=== PATIENT | male | born 1965 | race Caucasian/White ===

== ENCOUNTER 2018-01-31 15:45 | Outpatient (CLI) | payer BC | END 2018-01-31 15:46 | disposition home or self-care (01) | LOC: BICRAD 15:45 | PROVIDERS: ATTEND Internal Medicine Rheumatology | DX: M79.672 Pain in left foot (principal); M19.072 Primary osteoarthritis, left ankle and foot ==

== ENCOUNTER 2019-01-31 14:44 | Outpatient (CLI) | payer BC ==
--- NOTE | 2019-01-31 15:17 | RAD ---
LEFT FOOT 3 VIEWS: HISTORY: Injury 1 year ago with pain, stress fracture. FINDINGS: No evidence for acute fracture or dislocation. No plain film evidence for a stress-related fracture. There are some degenerative and osteoarthrosis changes. IMPRESSION: Degenerative and osteoarthrosis changes. No acute fracture or dislocation. If there remains clinical concern for stress fracture or stress related injury, a followup MRI study would be of benefit in further assessing this. POS: [facility]
== END 2019-01-31 14:45 | disposition home or self-care (01) ==
LOC: BICRAD 14:44
PROVIDERS: ATTEND Internal Medicine Rheumatology
DX: M84.375D Stress fracture, left foot, subsequent encounter for fracture with routine healing (principal); M19.072 Primary osteoarthritis, left ankle and foot

== ENCOUNTER 2019-07-10 10:06 | Outpatient (CLI) | payer BC ==
--- NOTE | 2019-07-10 11:45 | CT ---
CT Abdomen Pelvis W WO con: 07/10/2019 12:00 AM CLINICAL HISTORY: Gross hematuria. TECHNIQUE: Multiple contiguous axial images were obtained and a CT of the abdomen and pelvis without and with IV contrast. Postcontrast images were obtained in the nephrographic and excretory phases. Sagittal and coronal reformats were performed. COMPARISON: None. FINDINGS: Kidneys and Urinary Tract: Right kidney and ureter: No calculi. No hydronephrosis or hydroureter. No renal mass or other lesions . No urothelial lesions: no filling defect, dilation, stricture or wall thickening. Left kidney and ureter: No calculi. No hydronephrosis or hydroureter. 8.9 cm cyst. No solid mass. No urothelial lesions: no filling defect, dilation, stricture or wall thickening. Urinary bladder: Normal, no calculi, mass or other lesions. Remainder of Abdomen and Pelvis: Liver: Normal. Gallbladder and biliary system: Normal. No CT evident gallstones. No biliary ductal dilatation. Spleen: Normal. Pancreas: Normal. Adrenal glands: Normal. GI tract: Postsurgical changes in the stomach. Abdominal aorta and its major branches: Normal. No aneurysm. Peritoneum/retroperitoneum: Normal. No ascites. No adenopathy. Pelvic structures: Normal. No pelvic lymphadenopathy. Body wall and musculoskeletal: Degenerative changes and postsurgical changes in the spine. Visualized lower thorax: Normal. No pulmonary parenchymal mass or pleural effusion. IMPRESSION: Left renal cyst
== END 2019-07-10 10:07 | disposition home or self-care (01) ==
LOC: SCSCT 10:06
PROVIDERS: ATTEND Family Medicine
DX: R31.0 Gross hematuria (principal); N28.1 Cyst of kidney, acquired
CPT/HCPCS: 74178

== ENCOUNTER 2019-07-25 15:34 | Outpatient (CLI) | payer BC ==
[2019-07-25 15:54] VITALS: BMI 29.5
[2019-07-25 16:12] LABS: Hemoglobin 18.2 g/dL (14.0-18.0); Mean Corpuscular HGB CONC 34.1 g/dL (32.0-36.0); Mean Corpuscular Hemoglobin 33.8 pg (27.0-31.0); Mean Platelet Volume 7.9 fL (7.4-10.4); Platelet Count 172 thou/uL (130-400); RBC Distribution Width 12.7 % (11.5-14.5); Red Blood Cell (RBC) Count 5.39 mill/uL (4.70-6.10); White Blood Cell (WBC) Count 10.6 thou/uL (4.8-10.8)
[2019-07-25 16:15] LABS: Bacteria/HPF None Seen HPF (None Seen); Bilirubin Negative (Negative); Blood, Urine Negative (Negative); Clarity Turbid (Clear); Glucose, Urine (Dipstick) Normal (Negative); Leukocyte 500 Leu/uL (Negative); Nitrite Negative (Negative); Protein, Urine (Dipstick) Negative (Neg-Trace); Squamous Epithelial None Seen HPF (0-3); Urobilinogen Normal mg/dL (Less than 2); WBC/HPF Greater than 50 HPF (0-3)
[2019-07-25 16:25] LABS: RBC/HPF 0-3 HPF (0-3)
[2019-07-25 16:29] LABS: Anion Gap 13 mmol/L (10-20); BUN (Urea Nitrogen) 12 mg/dL (8.4-25.7); Calc. Creatinine Clearance 86 mL/min (70-130); Calcium 9.8 mg/dL (7.8-10.44); Carbon Dioxide 27 mmol/L (22-29); Chloride 100 mmol/L (98-107); Estimated GFR-MDRD 54; Glucose 91 mg/dL (70-105); Potassium 4.1 mmol/L (3.5-5.1); Sodium 136 mmol/L (136-145)
== END 2019-07-25 15:35 | disposition home or self-care (01) ==
LOC: LABBT 15:34
PROVIDERS: ATTEND Urology
DX: Z01.818 Encounter for other preprocedural examination (principal); D41.4 Neoplasm of uncertain behavior of bladder
CPT/HCPCS: 80048; 81001; 85027; 87077; 87086; 93005; 93010

== ENCOUNTER 2019-07-30 10:11 | Day surgery (SDC) | payer BC ==
[~2019-07-30 10:11] MED LIST: Dexamethasone 20 MG/5 ML VIAL ONE; Lidocaine 1% PF 5 ML VIAL ONE; Ondansetron PF 4 MG/2 ML Vial ONE; PROPOFOL 200 MG/20 ML VIAL ONE
[2019-07-30] MEDS ORDERED: Levofloxacin 500 mg/D5W 100 ml Premix Bag ONE (10:36)
[2019-07-30] MEDS ORDERED: Fentanyl 100 MCG/2 ML VIAL ONE (12:05)
[2019-07-30] MEDS ORDERED: Iothalamate Meglumine 60% 50 ML VIAL FS ONE (12:09)
[2019-07-30] MEDS ORDERED: mitoMYcin 40 MG in Sterile Water 20 ML IV SCH (12:30)
[2019-07-30] MEDS ORDERED: Phenazopyridine HCl 97.5 MG TABLET ONE (13:43)
[2019-07-30] MEDS ORDERED: Oxybutynin 5 MG TAB ONE (13:43)
--- NOTE | 2019-07-30 17:23 | OP ---
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 PROCEDURES PERFORMED: Transurethral resection of medium bladder tumor, bilateral retrograde pyelograms, and instillation of mitomycin-C. ANESTHESIA: General. COMPLICATIONS: None. BLOOD LOSS: Minimal. SPECIMEN: Right and left bladder wall tumors. DESCRIPTION OF PROCEDURE: After informed consent, the patient was taken to the operating room, transferred to the table under his own power. Anesthesia was established. A time-out was performed showing the correct patient, site, and procedure. He was prepped and draped in the lithotomy position. I started by passing the rigid cystoscope through the urethra, noting a normal course and caliber of the urethra into the bladder. The bladder was systematically examined with both 30-degree and 70-degree lens noting tumor on the right wall about 3 cm and left wall about 2 cm. There were some intervening erythematous patches between these 2 tumors along the posterior wall. The anterior wall was normal as well as the bladder neck. Using a Pollack catheter, I performed right and left retrograde pyelograms showing good filling of both ureters without hydronephrosis, hydroureter, or filling defects. I then switched to the rigid resectoscope and removed first the left wall tumor, which was passed off the specimen. I then removed the right wall tumor, which was also passed off. The erythematous tissue between these was then cauterized. Meticulous hemostasis was achieved. The bladder was drained, reexamined, noting no bleeding or residual specimen. The scope was then withdrawn, and a 20-[place] catheter was placed with 10 mL instilled in the balloon. 40 mg of mitomycin and 20 mL were injected through the catheter into the patient's bladder. The catheter was plugged. He was then brought down from the lithotomy position, awoken from anesthesia, transferred back to his hospital bed and taken to PACU in stable condition, where the mitomycin will be left to dwell for 1 hour. Job ID: [id number]
== END 2019-07-30 16:22 | disposition home or self-care (01) ==
LOC: SDC 10:11
PROVIDERS: ATTEND Urology
PROC: 0TBB8ZX Excision of Bladder, Via Natural or Artificial Opening Endoscopic, Diagnostic (ICD-10-PCS; principal; 2019-07-30)
DX: C67.2 Malignant neoplasm of lateral wall of bladder (principal); I25.10 Atherosclerotic heart disease of native coronary artery without angina pectoris; I25.2 Old myocardial infarction; E78.5 Hyperlipidemia, unspecified; I10 Essential (primary) hypertension; F90.0 Attention-deficit hyperactivity disorder, predominantly inattentive type; L40.50 Arthropathic psoriasis, unspecified; G47.33 Obstructive sleep apnea (adult) (pediatric); K21.9 Gastro-esophageal reflux disease without esophagitis; F32.9 Major depressive disorder, single episode, unspecified; E55.9 Vitamin D deficiency, unspecified; R73.03 Prediabetes; Z79.82 Long term (current) use of aspirin; Z79.899 Other long term (current) drug therapy; Z88.1 Allergy status to other antibiotic agents; Z88.5 Allergy status to narcotic agent; Z98.84 Bariatric surgery status
CPT/HCPCS: 76000; 88307; C1758; C1769; J1100; J1956; J2001; J2405; J2704; J3010; J9280

== ENCOUNTER 2021-06-21 08:17 | Outpatient (CLI) | payer BC | END 2021-06-21 08:18 | disposition home or self-care (01) | LOC: RAD 08:17 | PROVIDERS: ATTEND Internal Medicine Critical Care Medicine | DX: R06.00 Dyspnea, unspecified (principal) | CPT/HCPCS: 71046 ==

== ENCOUNTER 2021-12-09 17:00 | Outpatient (CLI) | payer BC | END 2021-12-09 17:01 | disposition home or self-care (01) | LOC: SLEEPLAB 17:00 | PROVIDERS: ATTEND Family Medicine | DX: G47.33 Obstructive sleep apnea (adult) (pediatric) (principal); I25.10 Atherosclerotic heart disease of native coronary artery without angina pectoris; I10 Essential (primary) hypertension; F32.9 Major depressive disorder, single episode, unspecified; G47.00 Insomnia, unspecified; F90.9 Attention-deficit hyperactivity disorder, unspecified type | CPT/HCPCS: 95800 ==

== ENCOUNTER 2022-05-17 07:44 | Outpatient (CLI) | payer BC | END 2022-05-17 07:45 | disposition home or self-care (01) | LOC: SCSMRI 07:44 | PROVIDERS: ATTEND Orthopaedic Surgery | DX: M23.91 Unspecified internal derangement of right knee (principal); S83.241A Other tear of medial meniscus, current injury, right knee, initial encounter; M22.41 Chondromalacia patellae, right knee; S86.811A Strain of other muscle(s) and tendon(s) at lower leg level, right leg, initial encounter ==